=== PATIENT | female | born 1930 | race Caucasian/White ===

== ENCOUNTER 2017-05-15 16:57 | Inpatient (IN) | payer OTHER ==
[~2017-05-15] VITALS: Ht 154.9 cm; Wt 105.2 kg
[2017-05-15 17:30] VITALS: BP 141/59
[2017-05-15] MEDS ORDERED: ASPIR 8181 MG PO (17:50)
[2017-05-15] MEDS ORDERED: ARICEPT 5 MG TAB5 MG PO (17:50)
[2017-05-15] MEDS ORDERED: CENTRUM SILVER1 EAC4 PO (17:51)
--- NOTE | 2017-05-15 19:06 | NUR ---
PATIENT DIRECT ADMIT TO UNIT, ON FLOOR AT 1740. PATIENT IS A&OX1 TO SELF, HAS DEMENTIA, UNABLE TO ANSWER QUESTIONS APPROPRIATELY. RESPONDS WITH "I DON'T KNOW". WAS ABLE TO CONTACT SON, COLE FOR ADM ASSESSMENT. PATIENT ORIENTED TO ROOM, ALL BELONGINGNS WITHIN REACH, CALL LIGHT AT BEDSIDE. INSTRUCTED TO CALL FOR ASSISTANCE, VERBALIZES UNDERSTANDING. NO IV ACCESS AT THIS TIME, ON ROOM AIR, UP WITH ASSISTX1 STAND BY, STEADY GAIT. PATEINT HAS CELLULITUS TO BLE, REDNESS, SWELLING, WARMTH NOTED. PICTURES NOT TAKEN AT THIS TIME, INSTRUCTED NEXT SHIFT OF THE NEED OF ADM PICTURES. 2+ EDEMA NOTED BLE. NO C/O PAIN/N/V. NO OTHER CONCERNS AT THIS TIME. APPROPRIATE AND COOPORATIVE WITH CARE.
[2017-05-15 19:31] LABS: ABSOLUTE BASOPHILS 0.1 thou/uL (0.0-0.2); ABSOLUTE EOSINOPHILS 0.2 thou/uL (0.0-0.7); ABSOLUTE LYMPHOCYTES 1.9 thou/uL (0.8-5.3); ABSOLUTE MONOCYTES 0.7 thou/uL (0.0-1.2); ABSOLUTE NEUTROPHILS 5.1 thou/uL (1.6-8.1); EOSINOPHILS 2.4 %; HEMATOCRIT 35.2 % (37.0-47.0); HEMOGLOBIN 11.5 gm/dL (12.0-15.0); LYMPHOCYTES 24.3 %; MCHC 32.6 g/dL (28.0-37.0); MONOCYTES 8.9 %; MPV 8.1 fl. (7.2-11.1); NUCLEATED RBCS 0 /100WBC; PLATELET COUNT* 356 thou/uL (150-400); POLYS 63.4 %; RBC 3.83 mil/uL (4.20-5.00); RDW-CV 14.9 % (10.5-14.5)
[2017-05-15 19:43] LABS: ALBUMIN 2.5 g/dL (3.4-5.0); CALCIUM 8.3 mg/dL (8.5-10.1); CREATININE 0.9 mg/dL (0.6-1.3); POTASSIUM 4.1 mmol/L (3.5-5.1); TOTAL BILIRUBIN 0.2 mg/dL (<0.1-1.0); TOTAL PROTEIN 6.6 g/dL (6.4-8.2)
[2017-05-15 21:00] VITALS: BP 123/62
[2017-05-16 03:59] LABS: HEMATOCRIT 30.5 % (37.0-47.0); HEMOGLOBIN 10.4 gm/dL (12.0-15.0); MCH 30.7 pg (26.0-34.0); MCHC 34.2 g/dL (28.0-37.0); MCV 89.8 fL (80.0-100.0); MPV 7.8 fl. (7.2-11.1); RBC 3.39 mil/uL (4.20-5.00); RDW-CV 14.7 % (10.5-14.5); WBC 7.2 thou/uL (4.0-11.0)
[2017-05-16 04:40] LABS: CALCIUM 7.8 mg/dL (8.5-10.1); CREATININE 0.7 mg/dL (0.6-1.3); MAGNESIUM 2.1 mg/dL (1.8-2.4)
--- NOTE | 2017-05-16 06:33 | NUR ---
PATIENT SLEPT PART OF THE NIGHT. PATIENT IS ALERT AND ORIENTED TO SELF ONLY. PATIENT PULLED OUT FIRST IV THAT WAS STARTED. SECOND IV REMAINS IN PLACE SALINE LOCKED. IV ANTIBIOTICS WERE GIVEN ORDERED. BED ALARM IS ON FOR PATIENT SAFETY. WILL CONTINUE TO MONITOR.
[2017-05-16 07:30] VITALS: BP 138/68
--- NOTE | 2017-05-16 13:41 | NUR ---
SW called and spoke with pt dtr Lacey Wu at [phone] to complete initial assessment, introduce self and SW role. Pt working with therapy and pt confused. Pt lived at home alone and Андрей Wu would call and check on pt daily. Lacey shared that they plan to have pt live with them (they live on the same street as pt currently) either at dc if needed and/or as soon as they finish the room and bathroom that they are building on their house for the pt. Pt was previously independent with ADLs and mobility but the family had noticed deficits in pt cognition and memory. Pt has a walker but pt dtr says that pt does not use it. SW to continue to follow to assist with safe dc planning.
[2017-05-16 14:08] LABS: URINE BILIRUBIN NEGATIVE (Negative); URINE BLOOD NEGATIVE (Negative); URINE CLARITY CLEAR; URINE COLOR YELLOW; URINE GLUCOSE-RANDOM NEGATIVE (Negative); URINE KETONES NEGATIVE (Negative); URINE LEUKOCYTES-REFLEX NEGATIVE (Negative); URINE NITRITE-REFLEX NEGATIVE (Negative); URINE PROTEIN NEGATIVE (Negative); URINE UROBILINOGEN 0.2 E.U./dl (0.2-1.0)
--- NOTE | 2017-05-16 14:56 | NUR ---
WOUND NURSE: PATIENT SEEN FOR INTEGUMENTAREY ASSESSMENT OF BLE PERTAINING TO THE PRESENCE OF PERIPHERAL EDEMA, REDNSESS, NO WARMTH, OR OPEN DRAINING WOUNDS AT TIME OF THIS ASSESSMENT. CHECKED GONZALO'S IN BLE: 1.0 (144/138) RIGHT AND 1.1 (150/138) LEFT. CLEANSED WITH SOAP AND WATER, RINSED WITH WATER, THEN PATTED DRY. APPLIED MOISTURIZING LOTION TO INTACT SKIN TOES TO KNEE. WRAPPED WITH MEDILINE 3 LAYER COMPRESSIONW WRAPS BLE. CAPILLARY REFILL CHECKED AND WAS <3 SEC BLE.
[2017-05-16 16:00] VITALS: BP 142/64
--- NOTE | 2017-05-16 17:28 | 2DMMODE ---
[place] [address] 2 D/M-MODE ECHOCARDIOGRAM Name: KIERA THOMAS Room: [address] IN [facility]#: [id number] Admission: 05/15/17 Attend Phys: Chica Gonzalez, Discharge: Date of : 34 Date of Service: 05/16/17 1728 Report #: [id number] THIS REPORT FOR: //name// APPROVED REPORT Study performed: 05/16/2017 14:46:07 EXAM: Comprehensive 2D, Doppler, and color-flow Echocardiogram Patient Location: In-Patient Room #: 310 Status: routine BSA: 2.38 HR: 102 bpm BP: 138/68 mmHg Rhythm: NSR Other Information Study Quality: Good Indications edema 2D Dimensions LVEF(%): 70.18 (>50%) IVSd: 13.05 (7-11mm) LVOT Diam: 21.06 (18-24mm) LVDd: 48.79 mm PWd: 9.52 (7-11mm) Ascending Ao: 31.05 (22-36mm) LVDs: 29.40 (25-40mm) Aortic Root: 32.83 mm James's LVEF: 70.18 % Volumes Left Atrial Volume (Systole) LA ESV Index: 19.80 mL/m2 Aortic Valve AoV Peak Demetrio.: 2.23 m/s AO Peak Gr.: 19.85 mmHg LVOT Max P.99 mmHg AO Mean Gr.: 11.29 mmHg LVOT Mean P.47 mmHg LVOT Max V: 1.12 m/s AO V2 VTI: 44.37 cm LVOT Mean V: 0.72 m/s DWAIN (VTI): 1.95 cm2 LVOT V1 VTI: 24.80 cm Mitral Valve E/A Ratio: 0.95 [place] [address] 2 D/M-MODE ECHOCARDIOGRAM Name: KIERA THOMAS Josee Room: [address] [place] .R.#: [id number] Admission: 05/15/17 Attend Phys: Chica Gonzalez, Discharge: Date of : 34 Date of Service: 05/16/17 1728 Report #: [id number] MV Decel. Time: 167.83 ms MV E Max Demetrio.: 1.23 m/s MV PHT: 48.67 ms MVA (PHT): 4.52 cm2 TDI E/Lateral E': 12.30 E/Medial E': 12.30 Medial E' Demetrio.: 0.10 m/s Lateral E' Demetrio.: 0.10 m/s Pulmonary Valve PV Peak Demetrio.: 0.85 m/s PV Peak Gr.: 2.91 mmHg Tricuspid Valve TR Peak Gr.: 31.34 mmHg RVSP: 36.00 mmHg Left Ventricle The left ventricle is normal size. There is normal LV segmental wall motion. Mild concentric left ventricular hypertrophy. Left ventricular systolic function is normal. LVEF is 60-65%. Transmitral Doppler flow pattern suggests impaired LV relaxation. Right Ventricle The right ventricle is normal size. The right ventricular systolic function is normal. Atria The left atrium size is normal. The right atrium size is normal. Aortic Valve Mild to moderate aortic valve sclerosis. No aortic regurgitation is present. Mild aortic stenosis. Mitral Valve There is mitral annular calcification. Trace mitral regurgitation. No evidence of mitral valve stenosis. Tricuspid Valve The tricuspid valve is normal in structure. Mild tricuspid regurgitation. The RVSP is 35-40 mmHg. Pulmonic Valve The pulmonary valve is normal in structure. There is no pulmonic [place] [address] 2 D/M-MODE ECHOCARDIOGRAM Name: KIERA THOMAS Room: [address]#: [id number] Admission: 05/15/17 Attend Phys: Chica Gonzalez, Discharge: Date of : 34 Date of Service: 05/16/17 1728 Report #: [id number] Great Vessels The aortic root is normal in size. IVC is normal in size and collapses with >50% inspiration Pericardium There is no pericardial effusion. <Conclusion> The left ventricle is normal size. Mild concentric left ventricular hypertrophy. Left ventricular systolic function is normal. LVEF is 60-65%. Transmitral Doppler flow pattern suggests impaired LV relaxation. Mild to moderate aortic valve sclerosis. Mild aortic stenosis. There is mitral annular calcification. Mild tricuspid regurgitation. The RVSP is 35-40 mmHg. <ELECTRONICALLY SIGNED> By: Chris Rosa MD, FACC 05/16/178 27 27 Chris Rosa MD, FACC /INF
--- NOTE | 2017-05-16 18:36 | NUR ---
PT IS ADMITTED WITH CELLULITIS OF THE LOWER EXTREMITIES BILATERALLY. THEY WERE OPEN TO AIR UPON SHIFT, STUDENT APPLIED CURLEX AND [place] WRAPS ON LEGS. WOUND CARE CAME IN LATER AND CHANGED DRESSING TO 3 LAYER COMPRESSION WRAPS. PT IS ALERT TO THEMSELVES AND THE SITUATION AND IS CONFUSED. PT DENIES ANY PAIN AT THIS TIME. PT HAS VANC TROUGH ORDERED FOR 05/17. FALL RISK PRECAUTIONS IN PLACE. WILL CONTINUE TO MONITOR.
--- NOTE | 2017-05-16 19:03 | NUR ---
I HAVE READ AND REVIEWED THE DOCUMETATION BY SHEMAR BRIGGS, STUDENT NURSE AND AGREE WITH THE ABOVE DOCUMENTATION AND INTERVENTIONS.
[2017-05-17] VITALS: BP 138/73
[2017-05-17 04:30] LABS: HEMATOCRIT 32.3 % (37.0-47.0); HEMOGLOBIN 10.9 gm/dL (12.0-15.0); MCH 30.2 pg (26.0-34.0); MCHC 33.9 g/dL (28.0-37.0); MCV 89.2 fL (80.0-100.0); RBC 3.62 mil/uL (4.20-5.00); RDW-CV 14.5 % (10.5-14.5); WBC 5.9 thou/uL (4.0-11.0)
[2017-05-17 04:49] LABS: ALBUMIN 2.5 g/dL (3.4-5.0); CALCIUM 7.8 mg/dL (8.5-10.1); CREATININE 0.8 mg/dL (0.6-1.3); TOTAL BILIRUBIN 0.2 mg/dL (<0.1-1.0); TOTAL PROTEIN 5.6 g/dL (6.4-8.2)
--- NOTE | 2017-05-17 05:44 | NUR ---
PATIENT SLEPT MOST OF THE NIGHT. NEW IV WAS STARTED CHARTED AND REMAINS SALINE LOCKED. COMPRESSION WRAPS REMAIN TO BILATERAL LOWER EXTREMITIES. PATIENT REMAINS CONFUSED AND FORGETFUL. WILL CONTINUE TO MONITOR.
[2017-05-17 07:30] VITALS: BP 134/62
--- NOTE | 2017-05-17 11:18 | NUR ---
Pt was seen d/t high BMI of 44. Note dementia. Pt was admitted for cellulitis. Pt denies wt loss and poor appetite. Pt is enjoying food at hospital. Chart Reviewed. Pt is considered low nutrition risk.
[2017-05-17 16:22] VITALS: BP 147/72
--- NOTE | 2017-05-17 18:03 | NUR ---
PT IS ALERT TO PERSON AND SITUATION. PT HAS [address] L[address]ER COMPRESSION WRAP IN PLACE , AND PT CAN MOVE TOES STILL. PT REMOVED IV, NEW IV PLACED IN LEFT UPPER ARM. PT HAS BEEN RESTLESS, GETS UP FROM BED OFTEN. PT WAS UP TO CHAIR, ALARM WID NOT BEEP. PT EDUCATED ON CALLING BEFORE GETTING UP. FALL RISK PRECAUTIONS IN PLACE. WILL CONTINYUE TO MONITOR.
--- NOTE | 2017-05-17 18:49 | NUR ---
I HAVE REVIEWED AND READ THE DOCUMENTATION BY SHEMAR BRIGGS, STUDENT NURSE AND AGREE WITH THE ABOVE DOCUMENTATION AND DOCUMENTED INTERVENTIONS.
[2017-05-17 20:15] VITALS: BP 106/64
--- NOTE | 2017-05-18 05:30 | NUR ---
PT SLEPT SOUNDLY MOST OF THE NIGHT, IV VANC GIVEN, UP SBA TO THE BSC, COMPRESSION WRAPS INTACT, PLEASANT, ALERT TO SELF, CONFUSED, BED ALARM ON FOR SAFETY, CALL LIGHT IN REACH, WILL CONTINUE TO MONITOR
[2017-05-18 07:35] VITALS: BP 137/50
[2017-05-18] MEDS ORDERED: MINOCYCLINE HC100 M2 PO (13:28)
[2017-05-18 16:00] VITALS: BP 144/70
--- NOTE | 2017-05-18 16:22 | NUR ---
BED AND CHAIR ALARM ON FOR PATIENT ALL SHIFT. PATIENT CONTINUED TO TRY AND GET OUT OF BED AND CHAIR WITHOUT ASSISTANCE. IV RESTARTED TO RIGHT FOREARM THIS SHIFT LEFT UPPER ARM IV INFILTRATED, PATIENT PULLED RIGHT FOREARM IV OUT WHILE ATTEMPTING TO GET UP FROM CHAIR BY HERSELF. PATIENT INSTRUCTED SEVERAL TIMES THIS SHIFT NOT TO GET OUT OF BED OR CHAIR WITHOUT ASSISTANCE. OK TO LEAVE IV OUT PER DR. LAWLER AND PATIENT TO START ON PO ABX. PATIENT TO GO HOME TOMORROW WITH SON AND HOME HEATLH. LEGS REMAINED WRAPPED LETTY. PATIENT VOIDING PER BSC AND HAD A LARGE BM TODAY.
--- NOTE | 2017-05-18 18:42 | NUR ---
POTENTIAL DISCHARGE TOMORROW. CALLED SON,VEL AT [phone] TO DISCUSS. HE SAID HE WILL PROBABLY BRING HIS MOM TO HIS HOUSE TOMORROW AND HAVE HER SPEND THE NIGHT. HE WILL TAKE HER BACK TO HER [place]SE ON SATURDAY IN [place] ADDRESS IS [address], [place]. HE WILL STAY WITH HER THERE NEEDED. PT.WILL NEED HOME HEALTH FOR LEG WRAPS. HE CHOSE [facility]. REFERRAL MADE TO [facility] .FAXED FACE SHEET,H&P AND WOUND NURSES NOTE TO HER. SHE SAID THEY WOULD ACCEPT PT.TO SERVICE. [facility]-NOTIFY OF [phone] AND FAX ORDERS TO [phone].
[2017-05-18 20:00] VITALS: BP 139/54
--- NOTE | 2017-05-19 05:22 | NUR ---
PT SLEPT AT INTERVALS DURING THE NIGHT, PT IMPULSIVE, SETS OFF BED ALARM MULTIPLE TIMES, UP SBA TO THE BSC, PT ORIENTED TO SELF, CONFUSED, MUST BE RE-ORIENTED ABOUT LOCATION/SITUATION/TIME. TOOK OFF LEG WRAPS TWICE, NOW REWRAPPED, BED ALARM ON FOR SAFETY, CALL LIGHT IN REACH, WILL CONTINUE TO MONITOR
[2017-05-19 07:20] VITALS: BP 126/54
[2017-05-19 11:36] VITALS: BP 126/54
[2017-05-19 14:26] LABS: HEMATOCRIT 37.5 % (37.0-47.0); HEMOGLOBIN 12.4 gm/dL (12.0-15.0); MCH 30.1 pg (26.0-34.0); MCHC 33.1 g/dL (28.0-37.0); MPV 7.8 fl. (7.2-11.1); NUCLEATED RBCS 0 /100WBC; PLATELET COUNT* 407 thou/uL (150-400); RBC 4.11 mil/uL (4.20-5.00); RDW-CV 14.6 % (10.5-14.5); WBC 13.9 thou/uL (4.0-11.0)
[2017-05-19 14:38] LABS: ALBUMIN 2.9 g/dL (3.4-5.0); CALCIUM 8.5 mg/dL (8.5-10.1); CREATININE 1.1 mg/dL (0.6-1.3); TOTAL BILIRUBIN 0.3 mg/dL (<0.1-1.0); TOTAL PROTEIN 7.1 g/dL (6.4-8.2)
[2017-05-19 15:20] LABS: ABSOLUTE LYMPHOCYTES 1.7 thou/uL (0.8-5.3); ABSOLUTE MONOCYTES 1.4 thou/uL (0.0-1.2); ABSOLUTE NEUTROPHILS 10.8 thou/uL (1.6-8.1)
[2017-05-19 15:22] LABS: PLATELET ESTIMATE ADEQUATE
[2017-05-19 15:25] LABS: MACROCYTES Occasional
[2017-05-19 15:56] VITALS: BP 125/62
--- NOTE | 2017-05-19 16:30 | NUR ---
PATIENT UP FREQUENLTY TO USE BSC. DR. LAWLER NOTIFIED THAT PATIENT NOTED TO HAVE BLOOD IN STOOL THIS AFTERNOON, OCCULT BLOOD POSITIVE AND DR. LAWLER NOTIFIED. HGB STABLE. LEGS REMAIN WRAPPED LETTY ORDERED. PATIENT REMAINS ALERT AND ORIENTED TO NAME AND BIRTHDATE BUT OTHERWISE CONFUSED. GOOD APPETITE. PROBABLE DISCHARGE TOMORROW.
[2017-05-19 16:57] LABS: POTASSIUM 4.2 mmol/L (3.5-5.1)
[2017-05-19 23:31] VITALS: BP 93/51
[2017-05-20 04:12] LABS: CREATININE 0.9 mg/dL (0.6-1.3); POTASSIUM 4.1 mmol/L (3.5-5.1)
[2017-05-20 04:19] LABS: ABSOLUTE BASOPHILS 0.1 thou/uL (0.0-0.2); ABSOLUTE EOSINOPHILS 0.4 thou/uL (0.0-0.7); ABSOLUTE LYMPHOCYTES 1.1 thou/uL (0.8-5.3); ABSOLUTE MONOCYTES 0.9 thou/uL (0.0-1.2); ABSOLUTE NEUTROPHILS 7.4 thou/uL (1.6-8.1); BASOPHILS 0.6 %; EOSINOPHILS 3.9 %; HEMATOCRIT 35.6 % (37.0-47.0); HEMOGLOBIN 11.8 gm/dL (12.0-15.0); LYMPHOCYTES 11.5 %; MCH 29.8 pg (26.0-34.0); MCV 90.2 fL (80.0-100.0); MONOCYTES 9.1 %; MPV 7.8 fl. (7.2-11.1); NUCLEATED RBCS 0 /100WBC; PLATELET COUNT* 379 thou/uL (150-400); POLYS 74.9 %; RBC 3.95 mil/uL (4.20-5.00); RDW-CV 14.7 % (10.5-14.5); WBC 9.9 thou/uL (4.0-11.0)
--- NOTE | 2017-05-20 05:05 | NUR ---
PT SLEPT WELL OVERNIGHT, SETTING OFF BED ALARM TWICE GETTING OOB TO USE COMMODE. UP WITH SBA TO BSC TO VOID. PT DENIES PAIN OR PROBLEMS. ORIENTED TO SELF, CONFUSED. AM LABS DRAWN. NO IV ACCESS. COMPRESSION DRESSINGS CDI TO BLE. BED ALARM ON FOR SAFETY. RASH TO BACK AND ABDOMEN, HYDROCORTISONE CREAM AND NYSTATIN APPLIED, BENADRYL GIVEN FOR ITCHING. POSSIBLE DC TODAY.
[2017-05-20 07:45] VITALS: BP 116/67
[2017-05-20 11:15] VITALS: BP 126/54
--- NOTE | 2017-05-20 11:16 | NUR ---
ELI faxed final orders and med list to [facility]. ELI called and spoke with son Андрей who plans to provide pt ride home around 1 pm. Pt son plans to stay with pt a while in [place].
--- NOTE | 2017-05-20 13:15 | NUR ---
DISCHARGE PAPERWORK DISCUSSED WITH PATIENT'S SON. PATIENT'S SON GIVEN PRESCRIPTION AND EDUCATION PROVIDED REGARDING WOUND CARE TO BILATERAL LEGS. PATIENT'S SON VERBALIZED UNDERSTANDING. PIC OBTAINED OF LEGS PRIOR TO WOUND CARE CHANGING LEG WRAPS. PATIENT DISCHARGED TO HOME WITH ALL BELONGINGS. ESCORTED OFF NURSING UNIT VIA WHEELCHAIR WITH NURSING STAFF.
== END 2017-05-20 13:15 | disposition home health service (06) | DRG 602 ==
LOC: M.3W 16:57
PROVIDERS: Internal Medicine; ADMIT Internal Medicine
DX: L03.116 Cellulitis of left lower limb (principal); G93.40 Encephalopathy, unspecified; E44.1 Mild protein-calorie malnutrition; I50.32 Chronic diastolic (congestive) heart failure; R65.10 Systemic inflammatory response syndrome (SIRS) of non-infectious origin without acute organ dysfunction; L03.115 Cellulitis of right lower limb; K59.00 Constipation, unspecified; I87.8 Other specified disorders of veins; I87.2 Venous insufficiency (chronic) (peripheral); F03.90 Unspecified dementia, unspecified severity, without behavioral disturbance, psychotic disturbance, mood disturbance, and anxiety; Z79.82 Long term (current) use of aspirin; Z79.899 Other long term (current) drug therapy; Z23 Encounter for immunization

== ENCOUNTER 2019-11-01 06:33 | Emergency (ER) | payer MEDICARE ==
[~2019-11-01] VITALS: Ht 170.2 cm; Wt 101.2 kg
[~2019-11-01 06:33] MED LIST: ARICEPT 5 MG TAB5 MG PO; ASPIR 8181 MG PO; CENTRUM SILVER1 EAC4 PO; MINOCYCLINE HC100 M2 PO
[2019-11-01] MEDS ORDERED: DEPAKOTE 250MG250 MG PO (07:01)
[2019-11-01] MEDS ORDERED: VITAMIN B COMP1 EACH PO (07:01)
[2019-11-01] MEDS ORDERED: VITAMIN D350 MC4 PO (07:01)
[2019-11-01] MEDS ORDERED: NAMENDA 10 MG T10 MG PO (07:02)
[2019-11-01] MEDS ORDERED: XANAX 0.5 MG0.5 M1 PO (07:02)
[2019-11-01] MEDS ORDERED: NYSTATIN1 EA10 (07:02)
[2019-11-01 07:14] LABS: ABSOLUTE BASOPHILS 0.1 thou/uL (0.0-0.2); ABSOLUTE EOSINOPHILS 0.2 thou/uL (0.0-0.7); ABSOLUTE LYMPHOCYTES 1.2 thou/uL (0.8-5.3); ABSOLUTE MONOCYTES 0.8 thou/uL (0.0-1.2); ABSOLUTE NEUTROPHILS 5.3 thou/uL (1.6-8.1); BASOPHILS 0.8 %; EOSINOPHILS 2.1 %; HEMATOCRIT 37.3 % (37.0-47.0); HEMOGLOBIN 12.5 gm/dL (12.0-15.0); LYMPHOCYTES 16.1 %; MCH 30.7 pg (26.0-34.0); MCHC 33.6 g/dL (28.0-37.0); MCV 91.2 fL (80.0-100.0); MONOCYTES 10.4 %; MPV 8.6 fl. (7.2-11.1); NUCLEATED RBCS 0 /100WBC; PLATELET COUNT* 216 thou/uL (150-400); POLYS 70.6 %; RBC 4.09 mil/uL (4.20-5.00); RDW-CV 15.7 % (10.5-14.5); WBC 7.5 thou/uL (4.0-11.0)
[2019-11-01 07:24] LABS: CALCIUM 8.1 mg/dL (8.5-10.1); POTASSIUM 4.1 mmol/L (3.5-5.1)
[2019-11-01 07:30] LABS: ALBUMIN 2.9 g/dL (3.4-5.0); TOTAL BILIRUBIN 0.4 mg/dL (<0.1-1.0); TOTAL PROTEIN 6.7 g/dL (6.4-8.2)
[2019-11-01] MEDS ORDERED: DESYREL150 MG PO (08:30)
[2019-11-01 09:14] LABS: URINE BILIRUBIN NEGATIVE (Negative); URINE BLOOD NEGATIVE (Negative); URINE CLARITY CLEAR; URINE COLOR YELLOW; URINE GLUCOSE-RANDOM NEGATIVE (Negative); URINE KETONES NEGATIVE (Negative); URINE LEUKOCYTES-REFLEX NEGATIVE (Negative); URINE NITRITE-REFLEX POSITIVE (Negative); URINE PROTEIN NEGATIVE (Negative); URINE SPECIFIC GRAVITY >= 1.030 (1.005-1.030); URINE UROBILINOGEN 0.2 E.U./dl (0.2-1.0)
[2019-11-01] MEDS ORDERED: KEFLEX500 M1 PO (09:15)
[2019-11-01 09:21] LABS: CASTS None Seen /LPF (None Seen); CRYSTALS None Seen /LPF (None Seen); MUCUS None Seen strn/LPF (None Seen); SQUAMOUS 0-3 Few /LPF (0-3); URINE RBC 0-2 Rare /HPF (0-2); YEAST-REFLEX Present (None Seen)
[2019-11-01 10:32] VITALS: BP 144/57
--- NOTE | 2019-11-02 10:41 | EKG ---
[place] [address] ELECTROCARDIOGRAM REPORT Name: KIERA THOMAS Room: [facility]#: [id number] Admission: 11/01/19 Attend Phys: Discharge: 11/01/19 Date of : 34 Date of Service: 11/01/19 0744 Report #: [id number] THIS REPORT FOR: //name// [facility] ED Test Date: 2019-11-01 Test Time: 07:44:43 Pat Name: KIERA THOMAS Department: Room: Gender: Adult Caregiver: [facility] : 1930 Requested By: Karina Dickinson Order Number: [id number] MD: Juanito Duque Measurements Intervals [place] Rate: 65 P: 77 RI: 48 QRS: -11 QRSD: 143 T: 38 QT: 419 QTc: 436 Interpretive Statements Sinus rhythm Short RI interval Nonspecific intraventricular conduction delay No previous ECG available for comparison Electronically Signed On 11-02-2019 10:40:53 CDT by Juanito Duque [email or web address] <ELECTRONICALLY SIGNED> By: Juanito Duque MD, [facility] 11/02/19 1040 3 Juanito Duque MD, [facility] /EPI
--- NOTE | 2019-11-02 15:20 | EKG ---
[place] [address] ELECTROCARDIOGRAM REPORT Name: KIERA THOMAS Room: 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
== END 2019-11-01 10:32 | disposition home or self-care (01) ==
LOC: M.ERS 06:33
PROVIDERS: Emergency Medicine
DX: N39.0 Urinary tract infection, site not specified (principal); M25.571 Pain in right ankle and joints of right foot; M25.572 Pain in left ankle and joints of left foot; M25.472 Effusion, left ankle; Z20.828 Contact with and (suspected) exposure to other viral communicable diseases

== ENCOUNTER 2019-11-03 19:12 | Observation (INO) | payer MEDICARE ==
[~2019-11-03] VITALS: Ht 167.6 cm; Wt 103.0 kg
[~2019-11-03 19:12] MED LIST changes: +DEPAKOTE 250MG250 MG PO; +DESYREL150 MG PO; +KEFLEX500 M1 PO; +NAMENDA 10 MG T10 MG PO; +NYSTATIN1 EA10; +VITAMIN B COMP1 EACH PO; +VITAMIN D350 MC4 PO; +XANAX 0.5 MG0.5 M1 PO
[2019-11-03 19:14] VITALS: BP 178/102
[2019-11-03 19:46] LABS: ABSOLUTE BASOPHILS 0.1 thou/uL (0.0-0.2); ABSOLUTE EOSINOPHILS 0.3 thou/uL (0.0-0.7); ABSOLUTE LYMPHOCYTES 1.6 thou/uL (0.8-5.3); ABSOLUTE MONOCYTES 0.7 thou/uL (0.0-1.2); ABSOLUTE NEUTROPHILS 3.6 thou/uL (1.6-8.1); BASOPHILS 1.2 %; EOSINOPHILS 5.2 %; HEMATOCRIT 35.7 % (37.0-47.0); HEMOGLOBIN 12.1 gm/dL (12.0-15.0); LYMPHOCYTES 24.8 %; MCH 31.1 pg (26.0-34.0); MCV 91.4 fL (80.0-100.0); MONOCYTES 11.6 %; MPV 8.3 fl. (7.2-11.1); NUCLEATED RBCS 0 /100WBC; PLATELET COUNT* 242 thou/uL (150-400); POLYS 57.2 %; RBC 3.91 mil/uL (4.20-5.00); RDW-CV 15.3 % (10.5-14.5); WBC 6.3 thou/uL (4.0-11.0)
[2019-11-03 19:52] LABS: CALCIUM 8.1 mg/dL (8.5-10.1); POTASSIUM 3.8 mmol/L (3.5-5.1)
[2019-11-03 19:57] LABS: ALBUMIN 2.8 g/dL (3.4-5.0); TOTAL BILIRUBIN 0.3 mg/dL (<0.1-1.0); TOTAL PROTEIN 6.7 g/dL (6.4-8.2)
[2019-11-03 21:53] VITALS: BP 139/74
[2019-11-04 08:00] VITALS: BP 128/73; BP 177/69
--- NOTE | 2019-11-04 13:48 | EKG ---
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1930 Requested By: Elvis Campa Order Number: [id number] MD: Juanito Duque Measurements Intervals [place] Rate: 72 P: 46 MO: 174 QRS: -24 QRSD: 107 T: 60 QT: 394 QTc: 432 Interpretive Statements Sinus rhythm Atrial premature complexes Borderline left axis deviation Compared to ECG 11/01/2019 07:44:43 Atrial premature complex(es) now present Electronically Signed On 11-04-2019 13:47:59 CDT by Juanito Duque [email or web address] <ELECTRONICALLY SIGNED> By: Juanito Duque MD, [facility] 11/04/19 1347 26 Juanito Duque MD, [facility] /EPI
[2019-11-04 14:39] LABS: URINE BILIRUBIN NEGATIVE (Negative); URINE BLOOD NEGATIVE (Negative); URINE CLARITY CLEAR; URINE COLOR YELLOW; URINE GLUCOSE-RANDOM NEGATIVE (Negative); URINE KETONES NEGATIVE (Negative); URINE LEUKOCYTES-REFLEX NEGATIVE (Negative); URINE NITRITE-REFLEX NEGATIVE (Negative); URINE PROTEIN NEGATIVE (Negative); URINE UROBILINOGEN 0.2 E.U./dl (0.2-1.0)
--- NOTE | 2019-11-04 17:29 | 2DMMODE ---
[place] [address] 2 D/M-MODE ECHOCARDIOGRAM Name: KIERA THOMAS Room: [address] MReshma#: [id number] Admission: 11/03/19 Attend Phys: John Draper, Discharge: Date of : 34 Date of Service: 11/04/19 1729 Report #: [id number] THIS REPORT FOR: cc: Juanito Lima MD, David L. MD Liston, Michael J. MD [facility] ~ APPROVED REPORT Study performed: 11/04/2019 15:43:51 EXAM: Comprehensive 2D, Doppler, and color-flow Echocardiogram Patient Location: In-Patient Room #: [facility] Status: routine BSA: 2.13 HR: 97 bpm Rhythm: NSR Other Information Study Quality: Good Indications Abnormal ECG 2D Dimensions IVSd: 10.08 (7-11mm) LVOT Diam: 20.30 (18-24mm) LVDd: 45.18 mm PWd: 10.08 (7-11mm) Ascending Ao: 32.75 (22-36mm) LVDs: 29.12 (25-40mm) Aortic Root: 29.98 mm Volumes Left Atrial Volume (Systole) LA ESV Index: 25.60 mL/m2 Aortic Valve AoV Peak Demetrio.: 2.24 m/s AO Peak Gr.: 20.07 mmHg LVOT Max P.78 mmHg AO Mean Gr.: 11.62 mmHg LVOT Mean P.97 mmHg LVOT Max V: 0.97 m/s AO V2 VTI: 39.84 cm LVOT Mean V: 0.65 m/s DWAIN (VTI): 1.68 cm2 LVOT V1 VTI: 20.70 [place] [address] 2 D/M-MODE ECHOCARDIOGRAM Name: WILLIAMKIERA Josee Room: [address] MShaunnaRShaunna#: [id number] Admission: 11/03/19 Attend Phys: John Draper, Discharge: Date of : 34 Date of Service: 11/04/19 1729 Report #: [id number] Mitral Valve E/A Ratio: 0.87 MV Decel. Time: 211.34 ms MV E Max Demetrio.: 1.02 m/s MV PHT: 61.29 ms MVA (PHT): 3.59 cm2 TDI E/Lateral E': 11.33 E/Medial E': 11.33 Medial E' Demetrio.: 0.09 m/s Lateral E' Demetrio.: 0.09 m/s Pulmonary Valve PV Peak Demetrio.: 0.92 m/s PV Peak Gr.: 3.36 mmHg Tricuspid Valve RAP Estimate: 5.00 mmHg TR Peak Gr.: 31.06 mmHg RVSP: 36.00 mmHg PA Pressure: 36.00 mmHg Left Ventricle The left ventricle is normal size. There is normal LV segmental wall motion. There is normal left ventricular wall thickness. Left ventricular systolic function is normal. LVEF is 60-65%. Grade I - abnormal relaxation pattern. Right Ventricle The right ventricle is normal size. The right ventricular systolic function is normal. Atria The left atrium size is normal. The right atrium size is normal. Aortic Valve Mild aortic valve sclerosis. No aortic regurgitation is present. Mild aortic stenosis. Mitral Valve There is mitral annular calcification. Trace mitral regurgitation. No evidence of mitral valve stenosis. Tricuspid Valve The tricuspid valve is normal in structure. Trace tricuspid regurgitation. The RVSP is 35-[place] [address] 2 D/M-MODE ECHOCARDIOGRAM Name: KIERA THOMAS [address] [id number] Admission: 11/03/19 Attend Phys: John Draper, Discharge: Date of : 34 Date of Service: 11/04/19 1729 Report #: [id number] Pulmonic Valve The pulmonary valve is normal in structure. There is no pulmonic valvular regurgitation. Great Vessels The aortic root is normal in size. IVC is normal in size and collapses >50% with inspiration. Pericardium There is no pericardial effusion. <Conclusion> The left ventricle is normal size. There is normal left ventricular wall thickness. Left ventricular systolic function is normal. LVEF is 60-65%. Grade I - abnormal relaxation pattern. Mild aortic valve sclerosis. Mild aortic stenosis. There is mitral annular calcification. Trace mitral regurgitation. Trace tricuspid regurgitation. The RVSP is 35-40 mmHg. IVC is normal in size and collapses >50% with inspiration. <ELECTRONICALLY SIGNED> By: Chris Rosa MD, FACC 11/04/191728 28 28 Chris Rosa MD, FACC /INF
[2019-11-04 17:36] VITALS: BP 154/72
[2019-11-04 20:10] VITALS: BP 131/79; BP 131/99
[2019-11-04 20:20] VITALS: BP 139/78
[2019-11-05] VITALS: BP 113/58
[2019-11-05 08:00] VITALS: BP 144/63
[2019-11-05 16:14] VITALS: BP 144/63
[2019-11-05 17:23] VITALS: BP 143/75
== END 2019-11-05 17:00 ==
LOC: M.ERS 19:12 → M.TBA-ER 20:23 → M.2W 20:23
PROVIDERS: Emergency Medicine Emergency Medical Services; Internal Medicine; ADMIT Internal Medicine; ATTEND Internal Medicine
DX: Z03.818 Encounter for observation for suspected exposure to other biological agents ruled out (principal); F03.90 Unspecified dementia, unspecified severity, without behavioral disturbance, psychotic disturbance, mood disturbance, and anxiety; R29.6 Repeated falls; N39.0 Urinary tract infection, site not specified; E03.9 Hypothyroidism, unspecified; E43 Unspecified severe protein-calorie malnutrition; Z79.82 Long term (current) use of aspirin; Z79.899 Other long term (current) drug therapy; Z87.2 Personal history of diseases of the skin and subcutaneous tissue

== ENCOUNTER 2019-12-13 22:16 | Emergency (ER) | payer MEDICARE ==
[~2019-12-13] VITALS: Ht 170.2 cm; Wt 93.0 kg
[2019-12-13 23:18] LABS: ABSOLUTE BASOPHILS 0.1 thou/uL (0.0-0.2); ABSOLUTE EOSINOPHILS 0.2 thou/uL (0.0-0.7); ABSOLUTE LYMPHOCYTES 1.6 thou/uL (0.8-5.3); ABSOLUTE MONOCYTES 0.7 thou/uL (0.0-1.2); ABSOLUTE NEUTROPHILS 2.9 thou/uL (1.6-8.1); BASOPHILS 1.2 %; EOSINOPHILS 3.6 %; HEMATOCRIT 38.6 % (37.0-47.0); HEMOGLOBIN 12.8 gm/dL (12.0-15.0); MCH 30.7 pg (26.0-34.0); MCHC 33.2 g/dL (28.0-37.0); MCV 92.5 fL (80.0-100.0); MONOCYTES 12.9 %; MPV 9.1 fl. (7.2-11.1); NUCLEATED RBCS 0 /100WBC; PLATELET COUNT* 228 thou/uL (150-400); POLYS 53.3 %; RBC 4.17 mil/uL (4.20-5.00); RDW-CV 15.5 % (10.5-14.5); WBC 5.4 thou/uL (4.0-11.0)
[2019-12-13 23:21] LABS: CALCIUM 8.2 mg/dL (8.5-10.1); CREATININE 1.2 mg/dL (0.6-1.3); POTASSIUM 4.1 mmol/L (3.5-5.1)
[2019-12-13 23:31] LABS: MAGNESIUM 2.1 mg/dL (1.8-2.4); TOTAL BILIRUBIN 0.2 mg/dL (<0.1-1.0); TOTAL PROTEIN 6.9 g/dL (6.4-8.2)
[2019-12-13 23:33] LABS: PROTIME 10.7 Seconds (9.20-11.50)
[2019-12-14 00:35] LABS: URINE BILIRUBIN NEGATIVE (Negative); URINE BLOOD NEGATIVE (Negative); URINE CLARITY CLEAR; URINE COLOR YELLOW; URINE GLUCOSE-RANDOM NEGATIVE (Negative); URINE KETONES TRACE (Negative); URINE LEUKOCYTES-REFLEX NEGATIVE (Negative); URINE NITRITE-REFLEX POSITIVE (Negative); URINE PROTEIN NEGATIVE (Negative); URINE SPECIFIC GRAVITY >= 1.030 (1.005-1.030); URINE UROBILINOGEN 0.2 E.U./dl (0.2-1.0)
[2019-12-14 01:24] LABS: BACTERIA-REFLEX >30 Many /HPF (None Seen); CASTS None Seen /LPF (None Seen); CRYSTALS None Seen /LPF (None Seen); MUCUS 0-3 Light strn/LPF (None Seen); SQUAMOUS 4-10 Moderate /LPF (0-3); URINE RBC None Seen /HPF (0-2); URINE WBC-REFLEX 0-5 Rare /HPF (0-5)
[2019-12-14 03:18] VITALS: BP 137/74
[2019-12-14] MEDS ORDERED: BACTRIM DS TAB1 EACH PO (03:19)
[2019-12-14] MEDS ORDERED: XANAX 0.5 MG0.5 M1 PO ×2 (08:03→08:43)
[2019-12-14] MEDS ORDERED: ASA81BEC PO (08:42)
[2019-12-14] MEDS ORDERED: TYLENOL325 M1 PO (08:43)
[2019-12-14] MEDS ORDERED: VITAMIN B12-FO1 EAC1 PO (08:44)
--- NOTE | 2019-12-14 17:42 | EKG ---
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
--- NOTE | 2019-12-15 03:38 | NUR ---
0338-DEE DEE FROM LAB CALLED WITH ONE POSITIVE BLOOD CULTURE RESULT. DR BLAND NOTIFIED, NO ORDERS RECEIVED.
== END 2019-12-14 03:27 | disposition home or self-care (01) ==
LOC: M.ERS 22:16
PROVIDERS: Emergency Medicine
DX: N39.0 Urinary tract infection, site not specified (principal); F03.90 Unspecified dementia, unspecified severity, without behavioral disturbance, psychotic disturbance, mood disturbance, and anxiety; Z20.828 Contact with and (suspected) exposure to other viral communicable diseases; R60.0 Localized edema; L53.9 Erythematous condition, unspecified

== ENCOUNTER 2019-12-14 07:56 | Emergency (ER) | payer MEDICARE ==
[~2019-12-14] VITALS: Ht 167.6 cm; Wt 99.3 kg
[~2019-12-14 07:56] MED LIST changes: +BACTRIM DS TAB1 EACH PO
[2019-12-14] MEDS ORDERED: XANAX 0.5 MG0.5 M1 PO ×2 (08:03→08:43)
[2019-12-14] MEDS ORDERED: ASA81BEC PO (08:42)
[2019-12-14] MEDS ORDERED: TYLENOL325 M1 PO (08:43)
[2019-12-14] MEDS ORDERED: VITAMIN B12-FO1 EAC1 PO (08:44)
[2019-12-14 10:17] VITALS: BP 135/77
== END 2019-12-14 10:19 | disposition home or self-care (01) ==
LOC: M.ERS 07:56
DX: S93.492A Sprain of other ligament of left ankle, initial encounter (principal); X58.XXXA Exposure to other specified factors, initial encounter; Y93.89 Activity, other specified; Y92.89 Other specified places as the place of occurrence of the external cause; Y99.8 Other external cause status

== ENCOUNTER 2020-06-06 08:09 | Emergency (ER) | payer MEDICARE ==
[~2020-06-06] VITALS: Ht 167.6 cm; Wt 107.7 kg
[~2020-06-06 08:09] MED LIST changes: +ASA81BEC PO; +TYLENOL325 M1 PO; +VITAMIN B12-FO1 EAC1 PO
[2020-06-06] MEDS ORDERED: LASIX 40 MG TAB40 MG PO (08:17)
[2020-06-06 08:53] LABS: CALCIUM 8.7 mg/dL (8.5-10.1); CREATININE 0.9 mg/dL (0.6-1.3); POTASSIUM 4.7 mmol/L (3.5-5.1)
[2020-06-06 08:55] LABS: PROTIME 10.2 Seconds (9.20-11.50)
[2020-06-06 08:57] LABS: ALBUMIN 3.2 g/dL (3.4-5.0); TOTAL BILIRUBIN 0.3 mg/dL (<0.1-1.0); TOTAL PROTEIN 7.3 g/dL (6.4-8.2)
[2020-06-06 09:02] LABS: ABSOLUTE EOSINOPHILS 0.1 thou/uL (0.0-0.7); ABSOLUTE MONOCYTES 0.4 thou/uL (0.0-1.2); ABSOLUTE NEUTROPHILS 3.4 thou/uL (1.6-8.1); BASOPHILS 0.7 %; EOSINOPHILS 2.8 %; HEMATOCRIT 37.8 % (37.0-47.0); HEMOGLOBIN 12.5 gm/dL (12.0-15.0); LYMPHOCYTES 19.5 %; MCH 30.4 pg (26.0-34.0); MCHC 33.1 g/dL (28.0-37.0); MONOCYTES 8.9 %; MPV 8.2 fl. (7.2-11.1); NUCLEATED RBCS 0 /100WBC; PLATELET COUNT* 220 thou/uL (150-400); POLYS 68.1 %; RBC 4.11 mil/uL (4.20-5.00); WBC 4.9 thou/uL (4.0-11.0)
[2020-06-06] MEDS ORDERED: KEFLEX500 M1 PO (09:54)
[2020-06-06 10:30] VITALS: BP 150/84
--- NOTE | 2020-06-06 14:26 | EKG ---
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: [facility] : 1930 Requested By: Elvis Campa Order Number: [id number] : Albino Oneill Measurements Intervals [place] Rate: 80 P: 28 MA: 179 QRS: -12 QRSD: 94 T: 45 QT: 377 QTc: 435 Interpretive Statements Sinus rhythm Compared to ECG 12/13/2019 22:22:06 No significant changes Electronically Signed On 06-06-2020 14:25:57 SOCIAL MEDIA INTERN by Albino Oneill [email or web address] <ELECTRONICALLY SIGNED> By: Albino Oneill MD, [facility] 06/06/20 1425 3 3 Albino Oneill MD, [facility] /EPI
== END 2020-06-06 10:30 | disposition home or self-care (01) ==
LOC: M.ERS 08:09
PROVIDERS: Emergency Medicine Emergency Medical Services
DX: S00.81XA Abrasion of other part of head, initial encounter (principal); M25.561 Pain in right knee; W18.39XA Other fall on same level, initial encounter; Y93.89 Activity, other specified; Y92.89 Other specified places as the place of occurrence of the external cause; Y99.8 Other external cause status

== ENCOUNTER 2020-09-24 17:19 | Emergency (ER) | payer MEDICARE ==
[~2020-09-24] VITALS: Ht 162.6 cm; Wt 90.7 kg
[~2020-09-24 17:19] MED LIST changes: +LASIX 40 MG TAB40 MG PO
[2020-09-24] MEDS ORDERED: ZYPREXA2.5 MG PO (17:32)
[2020-09-24 17:53] LABS: ABSOLUTE EOSINOPHILS 0.1 thou/uL (0.0-0.7); ABSOLUTE LYMPHOCYTES 1.2 thou/uL (0.8-5.3); ABSOLUTE MONOCYTES 0.5 thou/uL (0.0-1.2); ABSOLUTE NEUTROPHILS 4.7 thou/uL (1.6-8.1); BASOPHILS 0.3 %; HEMATOCRIT 34.1 % (37.0-47.0); HEMOGLOBIN 11.7 gm/dL (12.0-15.0); LYMPHOCYTES 17.8 %; MCH 31.7 pg (26.0-34.0); MCHC 34.3 g/dL (28.0-37.0); MCV 92.2 fL (80.0-100.0); MONOCYTES 7.5 %; NUCLEATED RBCS 0 /100WBC; PLATELET COUNT* 231 thou/uL (150-400); POLYS 72.4 %; RDW-CV 15.8 % (10.5-14.5); WBC 6.5 thou/uL (4.0-11.0)
[2020-09-24 18:18] LABS: CALCIUM 8.5 mg/dL (8.5-10.1); CREATININE 0.7 mg/dL (0.6-1.3)
[2020-09-24 18:28] LABS: TOTAL BILIRUBIN 0.1 mg/dL (<0.1-1.0); TOTAL PROTEIN 6.8 g/dL (6.4-8.2)
[2020-09-24 19:18] VITALS: BP 128/64
--- NOTE | 2020-09-25 12:13 | EKG ---
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1930 Requested By: Tarik Figueroa Order Number: [id number] MD: Ed Murray Measurements Intervals [place] Rate: 82 P: 50 SC: 182 QRS: -10 QRSD: 106 T: 39 QT: 411 QTc: 480 Interpretive Statements Sinus rhythm Inferior infarct, old Compared to ECG 06/06/2020 08:24:05 Myocardial infarct finding now present Electronically Signed On 09-25-2020 12:13:26 CDT by Ed Murray [email or web address] <ELECTRONICALLY SIGNED> By: Ofelia Murray MD, [facility] 09/25/20 1213 1748 1748 Ofelia Murray MD, [facility] /EPI
== END 2020-09-24 19:18 | disposition home or self-care (01) ==
LOC: M.ERS 17:19
PROVIDERS: Emergency Medicine
DX: F03.90 Unspecified dementia, unspecified severity, without behavioral disturbance, psychotic disturbance, mood disturbance, and anxiety (principal); J70.8 Respiratory conditions due to other specified external agents; I10 Essential (primary) hypertension